=== PATIENT | male | born 1980 | race Caucasian/White ===

== ENCOUNTER 2018-03-04 18:31 | Emergency (ER) | payer OTHER ==
[~2018-03-04] VITALS: Ht 187.9 cm; Wt 73.9 kg
[~2018-03-04 18:31] MED LIST: MOTRIN800 MG PO; TRAMADOL HCL50 MG PO; VICODIN 500 MG-1 TAB PO
[2018-03-04] MEDS ORDERED: CHLORZOXAZONE500 M2 PO (18:40)
[2018-03-04] MEDS ORDERED: NAPROSYN500 MG PO (18:40)
== END 2018-03-04 20:12 | disposition home or self-care (01) ==
LOC: ED 18:31
DX: M54.42 Lumbago with sciatica, left side (principal); R03.0 Elevated blood-pressure reading, without diagnosis of hypertension

== ENCOUNTER 2018-07-25 10:52 | Emergency (ER) | payer OTHER ==
[~2018-07-25] VITALS: Ht 185.4 cm; Wt 74.8 kg
[~2018-07-25 10:52] MED LIST changes: +CHLORZOXAZONE500 M2 PO; +NAPROSYN500 MG PO
[2018-07-25] MEDS ORDERED: Tobrex Ophth S2.5 ML OPH (11:09)
[2018-09-30] MEDS ORDERED: Motrin,Rufen800 MG PO (09:23)
== END 2018-07-25 11:16 | disposition home or self-care (01) ==
LOC: ED 10:52
DX: H10.89 Other conjunctivitis (principal)

== ENCOUNTER 2019-10-26 21:16 | Emergency (ER) | payer OTHER ==
[~2019-10-26 21:16] MED LIST changes: +Motrin,Rufen800 MG PO; +Tobrex Ophth S2.5 ML OPH
== END 2019-10-26 23:22 | disposition home or self-care (01) ==
LOC: ED 21:16
DX: M25.562 Pain in left knee (principal); J45.909 Unspecified asthma, uncomplicated; X50.1XXA Overexertion from prolonged static or awkward postures, initial encounter; Y93.01 Activity, walking, marching and hiking; Y92.89 Other specified places as the place of occurrence of the external cause; Y99.8 Other external cause status

== ENCOUNTER 2021-05-24 16:45 | Emergency (ER) | payer OTHER ==
[2021-05-24] MEDS ORDERED: TYLENOL325 M1 PO (18:56)
[2021-05-24] MEDS ORDERED: NAPROXEN250 MG PO (18:56)
== END 2021-05-24 19:20 | disposition home or self-care (01) ==
LOC: ED 16:45
DX: S90.32XA Contusion of left foot, initial encounter (principal); W20.8XXA Other cause of strike by thrown, projected or falling object, initial encounter; Y93.89 Activity, other specified; Y92.89 Other specified places as the place of occurrence of the external cause; Y99.8 Other external cause status

== ENCOUNTER 2022-11-07 09:59 | Emergency (ER) | payer OTHER ==
[~2022-11-07] VITALS: Ht 187.9 cm; Wt 69.4 kg
[~2022-11-07 09:59] MED LIST changes: +NAPROXEN250 MG PO; +TYLENOL325 M1 PO
[2022-11-07] MEDS ORDERED: MELOXICAM15 MG PO (10:15)
== END 2022-11-07 10:45 | disposition home or self-care (01) ==
LOC: ED 09:59
DX: S63.613A Unspecified sprain of left middle finger, initial encounter (principal); Z87.891 Personal history of nicotine dependence; X50.0XXA Overexertion from strenuous movement or load, initial encounter; Y93.89 Activity, other specified; Y92.89 Other specified places as the place of occurrence of the external cause; Y99.0 Civilian activity done for income or pay